=== PATIENT | female | born 1980 | race Caucasian/White ===

== ENCOUNTER 2018-12-17 22:35 | Emergency (ER) | payer OTHER ==
[~2018-12-17] VITALS: Ht 160 cm; Wt 68.9 kg
[2018-12-17 22:40] VITALS: BP 127/71
--- NOTE | 2018-12-17 22:40 | NUR ---
TO BED # 01 AMBULATORY
--- NOTE | 2018-12-17 22:40 | NUR ---
VISUAL ACUITY BOTH EYE 20/20, LEFT EYE 20/20, RT EYE 20/20
--- NOTE | 2018-12-17 22:40 | NUR ---
ASSUMED CARE OF PT AT THIS TIME. C/O BI-LATERAL EYE PAIN/REDNESS/IRRITATION X 12 HOURS S/P EYELASH EXTENSIONS. AAOX4 WITH EVEN AND STEADY GAIT; PATIENT STATES PAIN OF 10/10; VSS; PATIENT POSITIONED FOR COMFORT; HOB ELEVATED; BEDRAILS UP X2; BED DOWN. ER MD MADE AWARE OF PT STATUS. WILL CONTINUE TO MONITOR.
[2018-12-17] MEDS ORDERED: methylPREDNISolone SS 125 MG in WATER STERILE 2 ML IM ONE (23:20)
[2018-12-17] MEDS ORDERED: TETRACAINE HCL/PF 0.5% OPTH 4 ML BTL OP ONE (23:20)
[2018-12-17 23:40] VITALS: BP 127/71
--- NOTE | 2018-12-17 23:40 | NUR ---
Patient discharged with v/s stable. Written and verbal after care instructions given and explained. Patient alert, oriented and verbalized understanding of instructions. Ambulatory with steady gait. All questions addressed prior to discharge. ID band removed. Patient advised to follow up with PMD. Rx of NAPROSYN, TOBRAMYCIN, BENADRYL, AND PREDNISONE given. Patient educated on indication of medication including possible reaction and side effects. Opportunity to ask questions provided and answered.
== END 2018-12-17 23:40 | disposition home or self-care (01) ==
LOC: MED 22:35
DX: T78.40XA Allergy, unspecified, initial encounter (principal); H10.13 Acute atopic conjunctivitis, bilateral; Z88.0 Allergy status to penicillin; X58.XXXA Exposure to other specified factors, initial encounter
CPT/HCPCS: 96372; 99283; J2930; Q0163